=== PATIENT | female | born 1955 | race African-American/Black ===

== ENCOUNTER 2021-01-13 10:01 | Inpatient (IN) | payer OTHER ==
[~2021-01-13] VITALS: Ht 167.6 cm; Wt 108.9 kg
[2021-01-13] MEDS ORDERED: ONDANSETRON HCL 4MG/2ML INJ IV STA ×2 (10:22→16:34)
[2021-01-13] MEDS ORDERED: MORPHINE SULFATE 4 MG/ML CPJ (NOT FOR IM USE) IV STA ×2 (10:22→16:34)
[2021-01-13] MEDS ORDERED: MORPHINE SULFATE 2 MG/ML CPJ (NOT FOR IM USE) IV NR ×2 (10:30→16:45)
[2021-01-13] MEDS ORDERED: SODIUM CHLORIDE 0.9% 1,000 ML IV ONE (10:30)
[2021-01-13 10:54] LABS: BASOPHILS % 0.4 % (0.0-2.0); EOSINOPHILS % 1.2 % (0.0-5.0); HEMOGLOBIN. 14.4 g/dL (12.0-16.0); LYMPHOCYTES % 22.4 % (20.0-50.0); MEAN CORPUSCULAR HEMOGLOBIN 28.4 pg (28.0-32.0); MEAN CORPUSCULAR VOLUME 84.8 fL (81.0-99.0); MEAN PLATELET VOLUME 7.9 fl (7.4-10.4); MONOCYTES % 7.9 % (2.0-8.0); NEUTROPHILS % 68.1 % (40.0-76.0); PLATELET 258 x1000/uL (130-400); RED BLOOD CELL COUNT 5.06 mill/uL (4.2-5.4); RED CELL DISTRIBUTION WIDTH 13.9 % (11.6-14.6)
[2021-01-13 11:01] LABS: CHLORIDE 110 mEq/L (98-107)
[2021-01-13 16:02] LABS: CLARITY URINE CLEAR (CLEAR); COLOR URINE YELLOW (YELLOW); KETONES URINE TRACE (NEGATIVE); LEUKOCYTE ESTERASE URINE NEGATIVE (NEGATIVE); NITRITE URINE NEGATIVE (NEGATIVE); OCCULT BLOOD URINE NEGATIVE (NEGATIVE); PROTEIN URINE 1+ (NEGATIVE); SPECIFIC GRAVITY URINE 1.015 (1.005-1.030)
[2021-01-13] MEDS ORDERED: AMLODIPINE 2.5MG TABLET PO ONE (16:45)
[2021-01-13] MEDS ORDERED: NITROGLYCERIN 0.4MG TABLET SL SL PRN (17:15)
[2021-01-13] MEDS ORDERED: ONDANSETRON HCL 4MG/2ML INJ IV PRN (17:15)
[2021-01-13] MEDS ORDERED: CLONIDINE 0.1MG TABLET PO PRN (17:15)
[2021-01-13] MEDS ORDERED: MAGNESIUM/ALUMINUM HYDROXIDE/SIMETHICONE 30ML UDC PO PRN (17:15)
[2021-01-13] MEDS ORDERED: DOCUSATE SODIUM 100MG CAPSULE PO PRN (17:15)
[2021-01-13] MEDS ORDERED: ZOLPIDEM TARTRATE 5MG TABLET PO PRN (17:15)
[2021-01-13] MEDS ORDERED: ENOXAPARIN 40MG/0.4ML SYR SUBCUT SCH (17:15)
[2021-01-13] MEDS ORDERED: KETOROLAC 15MG/ML VIAL IV PRN (17:15)
[2021-01-13] MEDS ORDERED: GUAIFENESIN 200MG/10ML SUGAR FREE UDC PO PRN (17:15)
[2021-01-13] MEDS ORDERED: IPRATROPIUM/ALBUTEROL 0.5-3(2.5)MG/3ML NEB NEB PRN (17:15)
[2021-01-13] MEDS ORDERED: ACETAMINOPHEN 325MG TABLET PO PRN ×2 (17:15)
[2021-01-13 18:00] VITALS: BP 175/88
[2021-01-13 18:07] LABS: ETHANOL BLOOD < 10 mg/dL
[2021-01-13 18:10] LABS: LDL CHOLESTEROL 90 mg/dL (5-100)
[2021-01-13 18:11] LABS: TOTAL IRON BINDING CAPACITY 405 ug/dL (250-450)
[2021-01-13 18:12] LABS: HDL CHOLESTEROL 64 mg/dL (40-59)
[2021-01-13 18:33] LABS: FOLIC ACID (FOLATE) SERUM 14.6 ng/mL (>5.38)
[2021-01-13 18:35] LABS: *BARBITURATES SCREEN URINE NEGATIVE (NEGATIVE); *BENZODIAZEPINES SCREEN URINE NEGATIVE (NEGATIVE); *COCAINE SCREEN URINE NEGATIVE (NEGATIVE); METHADONE URINE SCREEN NEGATIVE (NEGATIVE); OPIATES URINE SCREEN PRESUMTIVE POSITIVE (NEGATIVE)
[2021-01-13 18:36] LABS: *AMPHETAMINES SCREEN URINE NEGATIVE (NEGATIVE); CANNABINOID URINE SCREEN PRESUMTIVE POSITIVE (NEGATIVE); PHENCYCLIDINE URINE SCREEN NEGATIVE (NEGATIVE)
[2021-01-13 18:52] VITALS: BP 175/88
[2021-01-13] MEDS ORDERED: INFLUENZA VACCINE 05/PF 0.5 ML SYRINGE IM ONE (19:15)
[2021-01-13 20:00] VITALS: BP 150/84
[2021-01-13] MEDS ORDERED: MORPHINE SULFATE 2 MG/ML CPJ (NOT FOR IM USE) IV PRN (20:15)
[2021-01-13] MEDS: FAMOTIDINE 20MG TABLET PO SCH (20:34)
[2021-01-13] MEDS: AMLODIPINE 10MG TABLET PO SCH (20:34)
[2021-01-13] MEDS: LISINOPRIL 20MG TABLET PO SCH (20:35)
[2021-01-13] MEDS: ENOXAPARIN 30MG/0.3ML SYR SUBCUT SCH (20:35)
[2021-01-13] MEDS: NITROGLYCERIN OINT 1GM/INCH UDPKT TD SCH (22:10)
[2021-01-13] MEDS: DEXT 5%/LACTATED RINGERS 1,000 ML IV SCH (22:10)
[2021-01-14] VITALS: BP 143/65
[2021-01-14 00:08] LABS: PARTIAL THROMBOPLASTIN TIME 32.5 sec (23.4-31.0); PROTHROMBIN TIME 10.9 sec (9.6-11.0)
[2021-01-14 00:12] LABS: CREATINE KINASE 122 IU/L (26-192)
[2021-01-14 00:13] LABS: CREATINE KINASE MB FRACTION 1.1 ng/mL (0.5-3.6)
[2021-01-14] MEDS ORDERED: LABE100T5 PO (03:10)
[2021-01-14] MEDS ORDERED: HYDR12.54 PO (03:10)
[2021-01-14] MEDS ORDERED: LISI20TA31 PO (03:10)
[2021-01-14] MEDS ORDERED: AMLO10TA80 PO (03:10)
[2021-01-14 04:00] VITALS: BP 143/71
[2021-01-14] MEDS: DEXT 5%/LACTATED RINGERS 1,000 ML IV SCH ×2 (06:24→19:55)
[2021-01-14] MEDS: NITROGLYCERIN OINT 1GM/INCH UDPKT TD SCH ×3 (06:24→21:30)
[2021-01-14 08:00] VITALS: BP 138/65
[2021-01-14] MEDS: LISINOPRIL 20MG TABLET PO SCH ×2 (09:08→21:30)
[2021-01-14] MEDS: FAMOTIDINE 20MG TABLET PO SCH ×2 (09:08→21:30)
[2021-01-14] MEDS: ENOXAPARIN 30MG/0.3ML SYR SUBCUT SCH ×2 (09:09→21:29)
[2021-01-14] MEDS: AMLODIPINE 10MG TABLET PO SCH (09:09)
[2021-01-14 11:25] LABS: BASOPHILS % 0.4 % (0.0-2.0); EOSINOPHILS % 0.8 % (0.0-5.0); HEMATOCRIT. 40.6 % (36.0-48.0); HEMOGLOBIN. 13.3 g/dL (12.0-16.0); LYMPHOCYTES % 25.2 % (20.0-50.0); MEAN CORPUSCULAR HEMOGLOBIN 27.9 pg (28.0-32.0); MEAN CORPUSCULAR VOLUME 84.9 fL (81.0-99.0); MEAN PLATELET VOLUME 8.3 fl (7.4-10.4); MONOCYTES % 10.2 % (2.0-8.0); NEUTROPHILS % 63.4 % (40.0-76.0); PLATELET 273 x1000/uL (130-400); RED BLOOD CELL COUNT 4.78 mill/uL (4.2-5.4); RED CELL DISTRIBUTION WIDTH 14.1 % (11.6-14.6)
[2021-01-14 11:32] LABS: CHLORIDE 104 mEq/L (98-107)
[2021-01-14 11:41] LABS: PHOSPHORUS 3.6 mg/dL (2.5-4.9)
[2021-01-14 11:44] LABS: CREATINE KINASE 102 IU/L (26-192)
[2021-01-14 11:47] LABS: CREATINE KINASE MB FRACTION 1.5 ng/mL (0.5-3.6)
[2021-01-14 12:00] VITALS: BP 141/66
[2021-01-14 16:00] VITALS: BP 147/73
[2021-01-14 20:00] VITALS: BP 130/61
[2021-01-15] VITALS: BP 125/67
[2021-01-15 04:00] VITALS: BP 133/67
[2021-01-15] MEDS: NITROGLYCERIN OINT 1GM/INCH UDPKT TD SCH ×3 (05:05→21:18)
[2021-01-15 08:00] VITALS: BP 143/55
[2021-01-15] MEDS: ENOXAPARIN 30MG/0.3ML SYR SUBCUT SCH ×2 (09:38→21:17)
[2021-01-15] MEDS: FAMOTIDINE 20MG TABLET PO SCH ×2 (09:40→21:17)
[2021-01-15] MEDS: LISINOPRIL 20MG TABLET PO SCH ×2 (09:40→21:18)
[2021-01-15] MEDS: AMLODIPINE 10MG TABLET PO SCH (09:41)
[2021-01-15] MEDS: DEXT 5%/LACTATED RINGERS 1,000 ML IV SCH ×2 (09:46→21:35)
[2021-01-15 12:00] VITALS: BP 138/62
[2021-01-15 16:00] VITALS: BP 148/66
[2021-01-15 20:00] VITALS: BP 139/68
[2021-01-16] VITALS: BP 160/81
[2021-01-16 00:30] VITALS: BP 141/56
[2021-01-16 04:00] VITALS: BP 127/88
[2021-01-16] MEDS: NITROGLYCERIN OINT 1GM/INCH UDPKT TD SCH (05:59)
[2021-01-16 08:00] VITALS: BP 183/82
[2021-01-16] MEDS: AMLODIPINE 10MG TABLET PO SCH (09:24)
[2021-01-16] MEDS: FAMOTIDINE 20MG TABLET PO SCH (09:24)
[2021-01-16] MEDS: ENOXAPARIN 30MG/0.3ML SYR SUBCUT SCH (09:25)
[2021-01-16] MEDS: LISINOPRIL 20MG TABLET PO SCH (09:25)
[2021-01-16 10:49] VITALS: BP 166/85
[2021-01-16 10:57] VITALS: BP 134/84
== END 2021-01-16 11:50 | disposition home or self-care (01) | DRG 254 ==
LOC: ER 10:01 → EDBEDREQ 15:34 → EDBEDREQTM 15:44 → EDBEDREQ 15:44 → 8WST 17:59 → CANBEDREQ 18:12
PROVIDERS: ADMIT Internal Medicine; ATTEND Internal Medicine
DX: K43.6 Other and unspecified ventral hernia with obstruction, without gangrene (principal); E11.9 Type 2 diabetes mellitus without complications; E66.9 Obesity, unspecified; I10 Essential (primary) hypertension; I16.1 Hypertensive emergency; Z68.38 Body mass index [BMI] 38.0-38.9, adult; Z20.822 Contact with and (suspected) exposure to COVID-19; Z28.21 Immunization not carried out because of patient refusal
CPT/HCPCS: 36415; 74176; 80053; 80061; 80305; 80320; 81003; 82550; 82553; 82607; 82746; 83036; 83540; 83550; 83735; 84100; 84484; 85025; 87426; 93005; 93970; 99285; C1893; J1650; J2270; J2405; J7030; G0480

== ENCOUNTER 2021-02-14 16:06 | Emergency (ER) | payer OTHER ==
[~2021-02-14] VITALS: Ht 175.3 cm; Wt 116.0 kg
[~2021-02-14 16:06] MED LIST: AMLO10TA80 PO; HYDR12.54 PO; LABE100T5 PO; LISI20TA31 PO
[2021-02-14 16:07] VITALS: BP 158/84
[2021-02-14 17:06] LABS: BASOPHILS % 0.4 % (0.0-2.0); EOSINOPHILS % 2.4 % (0.0-5.0); HEMATOCRIT. 44.6 % (36.0-48.0); HEMOGLOBIN. 14.5 g/dL (12.0-16.0); LYMPHOCYTES % 27.8 % (20.0-50.0); MEAN CORPUSCULAR HEMOGLOBIN 27.8 pg (28.0-32.0); MEAN CORPUSCULAR VOLUME 85.5 fL (81.0-99.0); MEAN PLATELET VOLUME 7.9 fl (7.4-10.4); MONOCYTES % 8.4 % (2.0-8.0); PLATELET 245 x1000/uL (130-400); RED BLOOD CELL COUNT 5.22 mill/uL (4.2-5.4); RED CELL DISTRIBUTION WIDTH 13.6 % (11.6-14.6)
[2021-02-14 17:13] LABS: CHLORIDE 107 mEq/L (98-107)
== END 2021-02-14 22:49 | disposition left against medical advice (07) ==
LOC: ER 16:06
DX: Z53.21 Procedure and treatment not carried out due to patient leaving prior to being seen by health care provider (principal)
CPT/HCPCS: 36415; 80053; 85025

== ENCOUNTER 2021-05-24 21:42 | Inpatient (IN) | payer OTHER ==
[~2021-05-24] VITALS: Ht 167.6 cm; Wt 103.9 kg
[2021-05-25] MEDS ORDERED: ONDANSETRON HCL 4MG/2ML INJ IV STA (00:04)
[2021-05-25] MEDS ORDERED: SODIUM CHLORIDE 0.9% 1,000 ML IV ONE (00:15)
[2021-05-25 01:43] LABS: CHLORIDE 108 mEq/L (98-107)
[2021-05-25 01:44] LABS: BASOPHILS % 0.2 % (0.0-2.0); EOSINOPHILS % 0.7 % (0.0-5.0); HEMATOCRIT. 41.2 % (36.0-48.0); HEMOGLOBIN. 13.9 g/dL (12.0-16.0); LYMPHOCYTES % 13.4 % (20.0-50.0); MEAN CORPUSCULAR HEMOGLOBIN 28.1 pg (28.0-32.0); MEAN CORPUSCULAR VOLUME 83.5 fL (81.0-99.0); MONOCYTES % 6.3 % (2.0-8.0); NEUTROPHILS % 79.4 % (40.0-76.0); PLATELET 240 x1000/uL (130-400); RED BLOOD CELL COUNT 4.94 mill/uL (4.2-5.4); RED CELL DISTRIBUTION WIDTH 13.8 % (11.6-14.6)
[2021-05-25] MEDS ORDERED: ACETAMINOPHEN 325MG TABLET PO PRN (10:00)
[2021-05-25] MEDS ORDERED: ENOXAPARIN 30MG/0.3ML SYR SUBCUT SCH (10:00)
[2021-05-25] MEDS ORDERED: DEXT 5%/0.45% NACL 1000ML 1,000 ML IV SCH (10:00)
[2021-05-25] MEDS ORDERED: ONDANSETRON HCL 4MG/2ML INJ IV PRN (10:00)
[2021-05-25] MEDS ORDERED: HYDROMORPHONE HCL/PF 2MG/ML CPJ IV PRN (10:00)
[2021-05-25] MEDS ORDERED: NALOXONE HCL 0.4MG/ML VIAL IV PRN (11:30)
[2021-05-25 11:50] VITALS: BP 156/72
[2021-05-25] MEDS ORDERED: POTASSIUM CHLORIDE 20MEQ TABLET SR PO NR (13:45)
[2021-05-25 13:57] VITALS: BP 156/72
== END 2021-05-25 15:20 | disposition home or self-care (01) | DRG 254 ==
LOC: ER 21:42 → MICUSO 05-25 04:47 → 6EST 05-25 11:13
PROVIDERS: ADMIT Hospitalist; ATTEND Hospitalist
DX: K43.2 Incisional hernia without obstruction or gangrene (principal); E11.9 Type 2 diabetes mellitus without complications; E87.6 Hypokalemia; Z20.822 Contact with and (suspected) exposure to COVID-19; I10 Essential (primary) hypertension; Z79.899 Other long term (current) drug therapy; Z82.49 Family history of ischemic heart disease and other diseases of the circulatory system
CPT/HCPCS: 36415; 74176; 80053; 85025; 87426; 93005; 99291; J1650; J2405; J7030

== ENCOUNTER 2021-12-05 17:35 | Emergency (ER) | payer SELFPAY ==
[~2021-12-05] VITALS: Ht 170.2 cm; Wt 75.0 kg
[2021-12-05 17:39] VITALS: BP 188/84
[2021-12-06 00:49] LABS: CHLORIDE 100 mEq/L (98-107)
[2021-12-06 00:52] LABS: BASOPHILS % 0.3 % (0.0-2.0); EOSINOPHILS % 0.2 % (0.0-5.0); HEMATOCRIT. 49.7 % (36.0-48.0); HEMOGLOBIN. 16.9 g/dL (12.0-16.0); LYMPHOCYTES % 12.8 % (20.0-50.0); MEAN CORPUSCULAR HEMOGLOBIN 28.4 pg (28.0-32.0); MEAN CORPUSCULAR VOLUME 83.5 fL (81.0-99.0); MEAN PLATELET VOLUME 8.8 fl (7.4-10.4); MONOCYTES % 2.8 % (2.0-8.0); NEUTROPHILS % 83.9 % (40.0-76.0); PLATELET 226 x1000/uL (130-400); RED BLOOD CELL COUNT 5.96 mill/uL (4.2-5.4); RED CELL DISTRIBUTION WIDTH 14.8 % (11.6-14.6)
[2021-12-06] MEDS ORDERED: ACETAMINOPHEN 325MG TABLET PO ONE (01:15)
[2021-12-06] MEDS ORDERED: ONDANSETRON HCL 4MG TABLET PO ONE (01:15)
[2021-12-06] MEDS ORDERED: MORPHINE SULFATE 10 MG/ML CPJ IM ONE (01:15)
[2021-12-06] MEDS ORDERED: TOPUD PO (01:41)
[2021-12-06 01:56] LABS: PROTHROMBIN TIME 10.8 sec (9.6-11.0)
== END 2021-12-06 06:02 | disposition home or self-care (01) ==
LOC: ER 17:35
DX: K43.9 Ventral hernia without obstruction or gangrene (principal); K42.9 Umbilical hernia without obstruction or gangrene; E11.9 Type 2 diabetes mellitus without complications; I10 Essential (primary) hypertension; Z79.899 Other long term (current) drug therapy
CPT/HCPCS: 36415; 74176; 80053; 83690; 85025; 85610; 93005; 96372; 99285; J2270; Q0162